=== PATIENT | female | born 1955 | race Caucasian/White ===

== ENCOUNTER 2016-12-09 16:09 | Emergency (ER) | payer OTHER ==
[~2016-12-09] VITALS: Ht 180.3 cm; Wt 98.8 kg
[~2016-12-09 16:09] MED LIST: CARV6.252 PO; LISI10TA PO; PERC5TAB12 PO; RIVA10 PO
[2016-12-09 16:10] VITALS: BP 149/94; PULSE 95; RESP 16; TEMP 98; O2SAT 97
[2016-12-09] MEDS ORDERED: TETANUS/DIPHTHERIA TOXOID ADULT 0.5 ML VIAL IM ONE (16:30)
[2016-12-09] MEDS ORDERED: LISI20TA PO (16:53)
[2016-12-09] MEDS ORDERED: CARV6.252 PO (16:53)
--- NOTE | 2016-12-09 16:54 | PD ---
HPI Chief Complaint: Fall Time Seen by Provider: 16:26 Travel History International Travel<30 days: No Contact w/Intl Traveler<30days: No Traveled to known affect area: No History of Present Illness HPI 61-year-old female complains of laceration to the forehead, left eyebrow and nose pain. Patient states that she fell this afternoon. Patient denies any loss of consciousness. Patient states that she hit her face down. Patient denies any headache. Patient denies any visual change. Patient states that she has mild aching pain to the nose. Patient denies any nosebleed. Patient denies any neck pain. Patient denies any chest pain or shortness of breath. Patient denies abdominal pain. Patient denies any focal weakness and numbness extremity. Patient denies any extremity injury. Patient's not up-to-date with TD booster. Patient refused x-ray to the face. PFSH Past Medical History Arthritis: Yes Cardiovascular Problems: Yes (HTN) Diminished Hearing: No Genitourinary: No Hypertension: Yes Immune Disorder: No Musculoskeletal: Yes Neurologic: No Psychiatric: No Reproductive: No Respiratory: No ?: Not Menopausal: Yes Tubal Ligation: Yes Past Surgical History Abdominal Surgery: Yes Appendectomy: Yes Cardiac Surgery: Yes Ear Surgery: No Endocrine Surgery: No Eye Surgery: No Genitourinary Surgery: No Gynecologic Surgery: No Joint Replacement: Yes (BILATERAL HIPS) Oral Surgery: No Thoracic Surgery: No Tonsillectomy: Yes Social History Alcohol Use: Yes (OCCASIONALLY) Tobacco Use: No Substance Use: No Allergies-Medications (Allergen,Severity, Reaction): Coded Allergies: Latex (Verified Allergy, Intermediate, rash, 12/09/16) Milk (Verified Allergy, Intermediate, gi upset, 12/09/16) Reported Meds & Prescriptions Reported Meds & Active Scripts Active Reported Carvedilol 6.25 Mg Tab 6.25 Mg PO HS Lisinopril-Hctz 20-12.5 Mg Tab 1 Tab PO DAILY Review of Systems General / Constitutional: No: Fever Eyes: No: Visual changes HENT: No: Headaches Cardiovascular: No: Chest Pain or Discomfort Respiratory: No: Shortness of Breath Gastrointestinal: No: Abdominal Pain Genitourinary: No: Dysuria Musculoskeletal: No: Pain Skin: No Rash Neurologic: No: Weakness Psychiatric: No: Depression Endocrine: No: Polydipsia Hematologic/Lymphatic: No: Easy Bruising Physical Exam Narrative GENERAL: Well-nourished, well-developed patient. SKIN: Focused skin assessment warm/dry. HEAD: Normocephalic. Patient had 3 cm laceration left forehead above left eyebrow. EYES: No scleral icterus. No injection or drainage. Pupils 3 mm equal reactive. Patient has a 0.5 cm superficial laceration right upper lip. Ecchymosis swelling tenderness of the nose. No obvious deformity noted. No septal hematoma. NECK: Supple, trachea midline. No JVD or lymphadenopathy. CARDIOVASCULAR: Regular rate and rhythm without murmurs, gallops, or rubs. RESPIRATORY: Breath sounds equal bilaterally. No accessory muscle use. GASTROINTESTINAL: Abdomen soft, non-tender, nondistended. MUSCULOSKELETAL: No cyanosis, or edema. BACK: Nontender without obvious deformity. No CVA tenderness. Neurologic exam normal. Data Data Last Documented VS Vital Signs Date Time Temp Pulse Resp B/P Pulse Ox O2 Delivery O2 Flow Rate FiO2 12/09/16 16:10 98.0 95 16 149/[address] Facial Bones W/O Iv Cont (12/09/16 16:30) Tetanus/Diphtheria Tox Adult (Tetanus/Di (12/09/16 16:30) MDM Medical Decision Making Medical Screen Exam Complete: Yes Emergency Medical Condition: Yes Differential Diagnosis Differential diagnosis including contusion, fracture nose, facial laceration. Narrative Course 61-year-old female with forehead laceration and nose injury. Patient refused x- ray of the nose. Patient refused CT scan of the face. TD booster given. Procedures Procedure Narrative LACERATION LOCATION: Forehead, upper lip LENGTH: 3 cm NUMBER OF STITCHES/PIPPA: Dermabond REPAIR: Saline wash. Dermabond applied. Diagnosis Primary Impression: Forehead laceration Qualified Code: S01.81XA - Forehead laceration, initial encounter Additional Impressions: Lip laceration Qualified Code: S01.511A - Lip laceration, initial encounter Nose injury Qualified Code: S09.92XA - Nose injury, initial encounter Patient Instructions: General Instructions Additional Instructions: Wound care daily. Keep the wound clean and dry for 7 days. Follow-up with personal physician. Return as needed. Med/Other Pt SpecificInfo: No Change to Meds Disposition: 01 DISCHARGE HOME Condition: Stable Arnoldo Gomez MD Dec 09, 2016 16:54
== END 2016-12-09 17:19 | disposition home or self-care (01) ==
LOC: PHED 16:09
DX: S01.81XA Laceration without foreign body of other part of head, initial encounter (principal); S01.511A Laceration without foreign body of lip, initial encounter; S09.92XA Unspecified injury of nose, initial encounter; W19.XXXA Unspecified fall, initial encounter; Z23 Encounter for immunization
CPT/HCPCS: 12013; 90471; 90714